=== PATIENT | male | born 1940 | race Caucasian/White ===

== ENCOUNTER 2019-12-07 11:43 | Outpatient (CLI) | payer MEDICARE, BC, SELFPAY ==
[2019-12-07 12:53] LABS: Anion Gap 14.1 mmol/L (7-16); Blood Urea Nitrogen 10 mg/dL (7-18); Calcium 9.3 mg/dL (8.5-10.1); Carbon Dioxide 26 mmol/L (21-32); Chloride 102 mmol/L (98-108); Estimated Glomerular Filt Rate > 60; Glucose 127 mg/dL (70-99); Osmolality Calculated 287 mOsm/kg (285-295); Potassium 4.1 mmol/L (3.5-5.1); Sodium 138 mmol/L (136-145)
== END 2019-12-07 11:44 | disposition home or self-care (01) ==
DX: I50.9 Heart failure, unspecified (principal)
CPT/HCPCS: 36415; 80048

== ENCOUNTER 2020-10-04 13:46 | Outpatient (CLI) | payer MEDICARE, SELFPAY ==
[2020-10-04 13:59] LABS: Basophils Absolute Auto 0.12 K/mm3 (0.00-0.10); Basophils Percent Auto 1.3 % (0.0-1.0); Eosinophils Absolute Auto 0.48 K/mm3 (0.02-0.50); Eosinophils Percent Auto 5.1 % (1.0-6.0); Hemoglobin 10.1 g/dL (12.4-15.3); Immature Granulocyte Absolute 0.03 K/mm3 (0.00-0.00); Immature Granulocyte Percent A 0.3 % (0.0-0.0); Lymphocytes Absolute Auto 2.28 K/mm3 (1.10-4.50); Lymphocytes Percent Auto 24.1 % (18.0-42.0); Mean Corpuscular HGB Conc 30.6 g/dL (32.0-36.0); Mean Corpuscular Hemoglobin 23.6 pg (27.0-31.0); Mean Corpuscular Volume 77.1 fL (78.0-102.0); Mean Platelet Volume 11.1 fl (8.7-11.0); Monocytes Absolute Auto 0.83 K/mm3 (0.10-0.90); Monocytes Percent Auto 8.8 % (2.0-11.0); Neutrophils Absolute Auto 5.7 K/mm3 (1.7-7.2); Neutrophils Percent Auto 60.4 % (50.0-70.0); Platelet Count Result 291 K/mm3 (150-420); Red Blood Count 4.28 M/mm3 (4.70-6.10); Red Cell Distribution Width 16.6 % (11.6-14.4); White Blood Count 9.5 K/mm3 (4.8-10.8)
[2020-10-04 15:24] LABS: Iron 19 ug/dL (65-175); Percent Iron Saturation 5 % (12-57)
== END 2020-10-04 13:47 | disposition home or self-care (01) ==
DX: D58.2 Other hemoglobinopathies (principal); D64.9 Anemia, unspecified
CPT/HCPCS: 36415; 83540; 83550; 85025

== ENCOUNTER 2020-10-17 11:18 | Outpatient (CLI) | payer MEDICARE, SELFPAY ==
[2020-10-17 12:25] LABS: Anion Gap 12 mmol/L (8-16); Blood Urea Nitrogen 19 mg/dL (7-18); Carbon Dioxide 27 mmol/L (21-32); Chloride 99 mmol/L (98-108); Estimated Glomerular Filt Rate 56; Glucose 126 mg/dL (70-99); Osmolality Calculated 290 mOsm/kg (285-295); Sodium 138 mmol/L (136-145)
== END 2020-10-17 11:19 | disposition home or self-care (01) ==
DX: I50.22 Chronic systolic (congestive) heart failure (principal)
CPT/HCPCS: 36415; 80048

== ENCOUNTER 2020-10-24 11:50 | Outpatient (CLI) | payer MEDICARE, SELFPAY ==
[2020-10-24 12:39] LABS: Anion Gap 12 mmol/L (8-16); Blood Urea Nitrogen 15 mg/dL (7-18); Calcium 8.5 mg/dL (8.5-10.1); Carbon Dioxide 25 mmol/L (21-32); Chloride 102 mmol/L (98-108); Estimated Glomerular Filt Rate > 60; Glucose 170 mg/dL (70-99); Osmolality Calculated 292 mOsm/kg (285-295); Potassium 4.2 mmol/L (3.5-5.1); Sodium 139 mmol/L (136-145)
== END 2020-10-24 11:51 | disposition home or self-care (01) ==
DX: I50.22 Chronic systolic (congestive) heart failure (principal)
CPT/HCPCS: 36415; 80048

== ENCOUNTER 2020-12-07 21:04 | Observation (INO) | payer MEDICARE, BC, SELFPAY ==
--- NOTE | ~2020-12-07 | XR_ITS ---
XR chest 2V DATE: 12/07/2020 22:39 INDICATION: Shortness of breath, generalized weakness TECHNIQUE: PA and lateral views COMPARISON: 07/30/2017 AP and lateral chest FINDINGS: Cardiac megaly. Aortic calcification and mild unfolding. monitoring manager device overlies th e left chest. Status post sternotomy. No pulmonary infiltrate or consolidation, pleural effusion or pulmonary vascular congestion or pneumo thorax is detected. Diffuse idiopathic skeletal hyperostosis of the thoracic spine. IMPRESSION: Cardiomegaly Aortic atherosclerosis No active pulmonary disease Reviewed, dictated and finalized at location A.
--- NOTE | ~2020-12-07 | XR_ITS ---
XR abdomen obstructive series DATE: 12/07/2020 22:39 INDICATION: Nausea and constipation TECHNIQUE: Supine and upright AP views COMPARISON: None FINDINGS: Degenerative spurring of the thoracic and lumbar spine. Multiple bilateral calcified pelvic phleboliths. Abdominal aortic, iliac and femoral artery calcifica tion. No evidence of bowel obstruction. No intraperitoneal free air is evident. No visceromegaly is detecte d. IMPRESSION: Nonspecific abdomen; no obstruction or free air is detected Reviewed, dictated and finalized at [facility]. Reviewed, dictated and finalized at location A.
[2020-12-07 21:15] VITALS: BP 130/97; PULSE 81; RESP 20; TEMP 36.4; O2SAT 97
--- NOTE | 2020-12-07 21:54 | ECG_ITS ---
Measurements Intervals Woody Rate: 69 P: PA: 0 QRS: 38 QRSD: 135 T: 152 QT: 438 QTc: 471 Interpretive Statements ATRIAL FIBRILLATION INTRAVENTRICULAR CONDUCTION DELAY DELAYED PRECORDIAL R/S TRANSITION BORDERLINE T WAVE ABNORMALITY- HIGH LATERAL LEADS ABNORMAL ECG Electronically Signed On 12-08-2020 7:20:38 CDT by Kash Murphy D.O.
[2020-12-07] MEDS: ONDANSETRON HCL ODT 4 MG TABLET PO (22:00)
[2020-12-07 22:12] LABS: Basophils Absolute Auto 0.11 K/mm3 (0.00-0.10); Basophils Percent Auto 0.9 % (0.0-1.0); Eosinophils Absolute Auto 0.28 K/mm3 (0.02-0.50); Eosinophils Percent Auto 2.4 % (1.0-6.0); Hematocrit 32.7 % (37.0-46.0); Hemoglobin 9.9 g/dL (12.4-15.3); Immature Granulocyte Absolute 0.03 K/mm3 (0.00-0.00); Immature Granulocyte Percent A 0.3 % (0.0-0.0); Lymphocytes Absolute Auto 3.43 K/mm3 (1.10-4.50); Lymphocytes Percent Auto 29.3 % (18.0-42.0); Mean Corpuscular HGB Conc 30.3 g/dL (32.0-36.0); Mean Corpuscular Hemoglobin 21.8 pg (27.0-31.0); Mean Platelet Volume 10.5 fl (8.7-11.0); Monocytes Absolute Auto 1.04 K/mm3 (0.10-0.90); Monocytes Percent Auto 8.9 % (2.0-11.0); Neutrophils Absolute Auto 6.8 K/mm3 (1.7-7.2); Neutrophils Percent Auto 58.2 % (50.0-70.0); Platelet Count Result 296 K/mm3 (150-420); Red Blood Count 4.54 M/mm3 (4.70-6.10); Red Cell Distribution Width 16.9 % (11.6-14.4); White Blood Count 11.7 K/mm3 (4.8-10.8)
--- NOTE | 2020-12-07 22:13 | ED.GENADULT ---
HPI - General Adult General Chief complaint: Dizziness Stated complaint: dizzy,nausea Time Seen by Provider: 12/07/20 21:25 Source: patient and family Mode of arrival: ambulatory Limitations: no limitations History of Present Illness HPI narrative: Patient comes in with complaints of diffuse pain, all over he says. He has been taking hydrocodone at home which he has from his primary doctor. He comes in because he has not been feeling well with diffuse discomfort. He denies fever, chills and other complaints or discomfort.. Onset (ago): day(s) Quality: aching Pain Consistency: intermittent Related Data Home Medications Medication Instructions Recorded Confirmed allopurinol 300 mg PO DAILY 12/07/20 12/07/20 amitriptyline 50 mg PO HS 12/07/20 12/07/20 apixaban [Eliquis] 5 mg PO BID 12/07/20 12/07/20 aspirin 81 mg PO DAILY 12/07/20 12/07/20 atorvastatin 20 mg PO DAILY 12/07/20 12/07/20 carvedilol 12.5 mg PO BID 12/07/20 12/07/20 furosemide 40 mg PO QAM AND QPM 12/07/20 12/07/20 hydrocodone-acetaminophen 1 tablet PO Q4-6H PRN 12/07/20 12/07/20 insulin glargine [Lantus Solostar 60 unit SUBCUT QAM AND QPM 12/07/20 12/07/20 U-100 Insulin] metolazone 2.5 mg PO 2XW 12/07/20 12/07/20 omeprazole 20 mg PO DAILY 12/07/20 12/07/20 sacubitril-valsartan [Entresto] 1 tablet PO BID 12/07/20 12/07/20 Allergies Allergy/AdvReac Type Severity Reaction Status Date / Time No Known Allergies Allergy Unverified 08/02/17 19:39 Review of Systems Constitutional: Constitutional: Reports no additional constitutional complaints Eyes: Eyes: Reports no additional eye complaints ENT: Reports system reviewed and no additional complaints, except as documented Cardiovascular: Cardiovascular: Reports no additional cardiovascular complaints Comments: no known tachycardia Respiratory: Respiratory: Reports no additional respiratory complaints Gastrointestinal: Gastrointestinal: Reports no additional gastrointestinal complaints Genitourinary: Genitourinary: Reports no additional male genitourinary complaints Musculoskeletal: Musculoskeletal: Reports no additional musculoskeletal complaints Integumentary/Breasts: Skin/Breast: Reports system reviewed and no additional complaints, except as docu Neurologic: Reports system reviewed and no additional complaints, except as documented Psychiatric: Psychiatric: Reports no additional psychiatric complaints Endocrine: Endocrine: Reports no additional endocrine complaints Hematologic/Lymphatic: Hematologic/Lymphatic: Reports no additional hematologic/lymphatic complaints Allergic/Immunologic: Allergic/Immunologic: Reports no additional allergic/immunologic complaints [facility] Past Medical History Medical History (Updated 12/08/20 @ 00:07 by Pollo Kinney MD) CAD (coronary artery disease) CHF (congestive heart failure) Diabetes mellitus GERD (gastroesophageal reflux disease) Gout Hyperlipidemia Hypertension Lower GI bleed Myocardial infarct Neuropathy Pacemaker Pacemaker Psoriasis Surgical History Surgical History (Updated 12/07/20 @ 23:47 by Pollo Kinney MD) Hx of CABG Previous back surgery Family History Family History (Updated 12/08/20 @ 00:13 by Pollo Kinney MD) Father Family history non-contributory Social History Social History (Updated 12/07/20 @ 23:52 by Pollo Kinney MD) Smoking status: Former smoker Alcohol intake: never Substance use: never Occupation/Education: retired Sexual Orientation (if Verbalized by the Patient): Straight or Heterosexual Exam Const: General: healthy appearing and no acute distress Orientation/consciousness: patient oriented x3 HENMT: Head: normal to inspection Ears: external ears normal Face and sinus: normal facial exam Mouth: Yes Normal oral and palatal mucosa present Eyes: Conjunctivae: conjunctivae normal Neck: Neck: normal visual inspection and no lymphadenopathy Chest: Chest palpation & inspection: normal i
[2020-12-07 22:28] LABS: BNP 131 pg/mL (0-100)
[2020-12-07 22:30] LABS: Alanine Aminotransferase 15 U/L (16-63); Albumin Level 3.6 g/dL (3.4-5.0); Alkaline Phosphatase 93 U/L (46-116); Anion Gap 11 mmol/L (8-16); Aspartate Amino Transferase 23 U/L (15-37); Bilirubin,Total 0.6 mg/dL (0.00-1.00); Blood Urea Nitrogen 24 mg/dL (7-18); Carbon Dioxide 28 mmol/L (21-32); Chloride 97 mmol/L (98-108); Estimated CRCL calculation 54 ml/min; Estimated Glomerular Filt Rate 49; Glucose 112 mg/dL (70-99); Lipase 136 U/L (73-393); Osmolality Calculated 287 mOsm/kg (285-295); Potassium 2.6 mmol/L (3.5-5.1); Sodium 136 mmol/L (136-145); Total Protein 7.6 g/dL (6.4-8.2); Troponin I 19.6 ng/L (0.00-60.4)
[2020-12-07] MEDS: POTASSIUM CHLORIDE 20 MEQ TABLET 50 MEQ PO (22:52)
--- NOTE | 2020-12-07 23:06 | PC.NURSE ---
ERP discussed POC c pt. and son, will admit for 23 hr. obs tele and reevaluate in AM.
--- NOTE | 2020-12-07 23:15 | PC.NURSE ---
Pt. took his own HS meds per permission of ERP.
[2020-12-07] MEDS: SODIUM CHLORIDE 0.9% IV 1,000 ML 150 ML IV CONT (23:28)
[2020-12-07 23:38] VITALS: BP 112/58; PULSE 79; RESP 18; TEMP 36.4; O2SAT 97
[2020-12-07 23:40] LABS: Phosphorus 3.2 mg/dL (2.6-4.7)
[2020-12-08] VITALS (7 sets, daily range): BP systolic 105–121; BP diastolic 50–62; PULSE 66–95; RESP 18–20; TEMP 36.2–36.9; O2SAT 96–98; BMI 39.9
--- NOTE | 2020-12-08 00:42 | PC.NURSE ---
Patient arrived on floor from ER at 2355 on 12/07/20. Patient denies any c/o pain. A/O x4. [employer]. Wears glasses and full dentures uppers and lowers. Patient denies any nausea. C/o SOB at times, not at this currently time. Vitals taken and charted. No skin issues noted. Telemetry ordered and placed.
--- NOTE | 2020-12-08 00:44 | PC.NURSE ---
Patient has personal belongings with patient in room, money and wallet, extrusion die corrector notified. Cell phone and devulcanizer charger.
[2020-12-08] MEDS: ZOLPIDEM TARTRATE (*CRX) 5 MG TABLET 10 MG PO (00:50)
--- NOTE | 2020-12-08 00:55 | PC.NURSE ---
Elavil and Coreg were not given as one time dose as patient took own medication already. wine fermenter notified.
[2020-12-08] MEDS: POTASSIUM CHLORIDE 10 MEQ TABLET 50 MEQ PO (05:07)
--- NOTE | 2020-12-08 05:45 | PC.NURSE ---
Pattern Storage Clerk collected UA and sent to lab for analysis. Awaiting results.
[2020-12-08 05:52] LABS: Add Urine Microscopic? NO; Appearance Urine Clear (Clear); Bilirubin Urine Negative (Negative); Blood Urine Negative (Negative); Color Urine Yellow (Yellow); Glucose Urine UA Negative (Negative); Ketones Urine Negative (Negative); Leukocyte Esterase Ur Negative (Negative); Nitrate Urine Negative (Negative); Protein Urine Negative (Negative); Urobilinogen Urine 0.2 mg/dL (0.2-1.0)
[2020-12-08] MEDS: SODIUM CHLORIDE 0.9% IV 1,000 ML 150 ML IV CONT (06:30)
[2020-12-08 08:03] LABS: Glucose Point of Care 71 (65-105)
[2020-12-08] MEDS: SACUBITRIL/VALSARTAN 24-26 MG TABLET 1 TAB PO (09:50)
[2020-12-08] MEDS: ATORVASTATIN 10 MG TABLET 20 MG PO (09:50)
[2020-12-08] MEDS: carvediloL 12.5 MG TABLET PO (09:50)
[2020-12-08] MEDS: ASPIRIN 81 MG ENTERIC TABLET PO (09:51)
[2020-12-08] MEDS: APIXABAN 2.5 MG TABLET 5 MG PO (09:51)
[2020-12-08] MEDS: allopurinoL 300 MG TABLET PO (09:51)
[2020-12-08] MEDS: PANTOPRAZOLE SOD SESQUIHYDRATE 20 MG TAB PO (09:51)
[2020-12-08] MEDS: POTASSIUM CHLORIDE 20 MEQ TABLET 40 MEQ PO (09:55)
[2020-12-08 10:16] LABS: Anion Gap 8 mmol/L (8-16); Blood Urea Nitrogen 22 mg/dL (7-18); Calcium 8.7 mg/dL (8.5-10.1); Carbon Dioxide 30 mmol/L (21-32); Chloride 100 mmol/L (98-108); Estimated CRCL calculation 60 ml/min; Estimated Glomerular Filt Rate 59; Glucose 148 mg/dL (70-99); Osmolality Calculated 292 mOsm/kg (285-295); Potassium 3.3 mmol/L (3.5-5.1); Sodium 138 mmol/L (136-145)
[2020-12-08] MEDS: ONDANSETRON INJ 4 MG/2 ML VIAL IV PUSH (10:49)
--- NOTE | 2020-12-08 10:49 | PM.SD2 ---
Same Day Admit/Disch: HPI History of Present Illness Chief complaint: hypokalemia afib Narrative: Kennedy Guerrero is a 80 year old male who presented to hospital staff with nausea and generalized muscle aches and dizziness on occasion. Pt has a PMHx of A fib (for witch he is seeing his manager distribution center for what sounds like cardioversion with possible pacemaker placement), DM, Gout, GERD, HTN, CHF, CAD, Hyperlipidemia. Lab work from 10/04/2020 indicates Iron Deficiency Anemia however Pt does not take Iron supplements. Pt denies CP, SOB, changes in bowel habits, changes in urinary habits. He admits that when he lays down he becomes SOB and has to sleep in a recliner. Pt may benefit from a Sleep Study in the future. [facility] Past Medical History Medical History (Updated 12/08/20 @ 14:38 by TANYA Lopez) CAD (coronary artery disease) CHF (congestive heart failure) Diabetes mellitus GERD (gastroesophageal reflux disease) Gout Hyperlipidemia Hypertension Lower GI bleed Myocardial infarct Neuropathy Psoriasis Surgical History Surgical History Hx of CABG Previous back surgery Family History Family History Father Family history non-contributory Social History Social History Smoking status: Former smoker Tobacco type: cigarettes Second hand tobacco smoke exposure: No Alcohol intake: former Substance use: never Substance use type: does not use Occupation/Education: retired Gender identity (if verbalized by the patient): Male Sexual Orientation (if Verbalized by the Patient): Straight or Heterosexual Spiritual care concerns: No Same Day Admit/Disch: Med Pre-admit Medications Home Medications Medication Instructions Recorded Confirmed Type allopurinol 300 mg PO DAILY 12/07/20 12/07/20 History amitriptyline 50 mg PO HS 12/07/20 12/07/20 History apixaban [Eliquis] 5 mg PO BID 12/07/20 12/07/20 History aspirin 81 mg PO DAILY 12/07/20 12/07/20 History atorvastatin 20 mg PO DAILY 12/07/20 12/07/20 History carvedilol 12.5 mg PO BID 12/07/20 12/07/20 History furosemide 40 mg PO QAM AND QPM 12/07/20 12/07/20 History hydrocodone-acetaminophen 1 tablet PO Q4-6H PRN 12/07/20 12/07/20 History insulin glargine [Lantus Solostar 60 unit SUBCUT QAM AND QPM 12/07/20 12/07/20 History U-100 Insulin] metolazone 2.5 mg PO 2XW 12/07/20 12/07/20 History omeprazole 20 mg PO DAILY 12/07/20 12/07/20 History sacubitril-valsartan [Entresto] 1 tablet PO BID 12/07/20 12/07/20 History zolpidem 10 mg PO HS PRN #30 tablet 12/08/20 Rx Exam Const: General: cooperative, comfortable, no acute distress, alert, awake and Physically active Nutritional Appearance: obese morbidly obese Resp: Effort & Inspection: normal respiratory effort Auscultation: clear to auscultation bilaterally Cardio: Rhythm: abnormal rhythm irregularly irregular GI: GI Palp: Yes Soft to palpation and No Tenderness to palpation present (GI) Auscultation: normal bowel sounds Neuro: General: oriented to person, oriented to place and oriented to time Cranial nerves: Yes CN's II-XII intact bilaterally (grossly intact) Extrem: General: edema bilateral (1+ pitting edema) DS: Data Data Completed and Pending Labs on day of discharge: Labs from last 24 hours 12/08/20 12/08/20 12/07/20 09:58 08:01 23:25 WBC RBC Hgb Hct MCV MCH MCHC RDW Plt Count MPV Immature Gran % (Auto) Neut % (Auto) Lymph % (Auto) Edwards % (Auto) Eos % (Auto) Baso % (Auto) Lymph # (Auto) Edwards # (Auto) Eos # (Auto) Baso # (Auto) Abs Immat Gran (auto) Absolute Neuts (auto) Absolute Nucleated RBC Nucleated RBC % Sodium 138 Potassium 3.3 L Chloride 100 Carbon Dioxide 30 Anion Gap 8 BUN 22 H Creatinine 1.19 E
--- NOTE | 2020-12-08 10:51 | PC.NURSE ---
4mg Zofran given IV per patient request for complaints of nausea.
[2020-12-08] MEDS: POTASSIUM CHLORIDE 20 MEQ PACKET (FOR LIQUID) 40 MEQ PO (11:22)
[2020-12-08 12:00] LABS: Glucose Point of Care 130 (65-105)
[2020-12-08] MEDS: BISACODYL 5 MG TABLET EC 10 MG PO (12:07)
--- NOTE | 2020-12-08 16:05 | PC.NURSE ---
All discharge instructions and education reviewed with patient. Patient states understanding. All belongings gathered together and sent home with patient. IV site discontinued, dressing in place. Patient denies any further questions at this time. Patient accompanied to front door via wheelchair by this nurse. Left via private vehicle with family member.
--- NOTE | 2020-12-19 11:38 | PC.NURSE ---
Patient's son states he received and understood all of his discharge instructions. Has no other comments.
== END 2020-12-08 16:05 | disposition home or self-care (01) ==
LOC: CHSED 21:09 → CHS2ND 23:51
PROVIDERS: Admitting Provider Emergency Medicine; Emergency Provider Emergency Medicine; Visit Provider Emergency Medicine
DX: E87.6 Hypokalemia (principal); I11.0 Hypertensive heart disease with heart failure; I48.11 Longstanding persistent atrial fibrillation; I50.9 Heart failure, unspecified; I25.2 Old myocardial infarction; I25.10 Atherosclerotic heart disease of native coronary artery without angina pectoris; E78.5 Hyperlipidemia, unspecified; E11.40 Type 2 diabetes mellitus with diabetic neuropathy, unspecified; K21.9 Gastro-esophageal reflux disease without esophagitis; M10.9 Gout, unspecified; R42 Dizziness and giddiness; Z95.0 Presence of cardiac pacemaker; Z95.1 Presence of aortocoronary bypass graft; Z87.891 Personal history of nicotine dependence; I48.91 Unspecified atrial fibrillation
CPT/HCPCS: 36415; 71046; 74019; 80048; 80053; 81003; 82948; 83690; 83735; 83880; 84100; 84484; 85025; 93005; 96361; 96374; 99285; A9270; G0378; J2405; J7030

== ENCOUNTER 2020-12-23 12:19 | Outpatient (CLI) | payer MEDICARE, SELFPAY ==
[2020-12-23 12:53] LABS: Basophils Absolute Auto 0.08 K/mm3 (0.00-0.10); Eosinophils Absolute Auto 0.17 K/mm3 (0.02-0.50); Hematocrit 26.6 % (37.0-46.0); Hemoglobin 7.8 g/dL (12.4-15.3); Immature Granulocyte Absolute 0.03 K/mm3 (0.00-0.00); Immature Granulocyte Percent A 0.4 % (0.0-0.0); Lymphocytes Absolute Auto 2.11 K/mm3 (1.10-4.50); Lymphocytes Percent Auto 25.1 % (18.0-42.0); Mean Corpuscular HGB Conc 29.3 g/dL (32.0-36.0); Mean Corpuscular Hemoglobin 21.4 pg (27.0-31.0); Mean Corpuscular Volume 73.1 fL (78.0-102.0); Mean Platelet Volume 9.4 fl (8.7-11.0); Monocytes Absolute Auto 0.59 K/mm3 (0.10-0.90); Neutrophils Absolute Auto 5.4 K/mm3 (1.7-7.2); Neutrophils Percent Auto 64.5 % (50.0-70.0); Platelet Count Result 322 K/mm3 (150-420); Red Blood Count 3.64 M/mm3 (4.70-6.10); Red Cell Distribution Width 18.4 % (11.6-14.4); White Blood Count 8.4 K/mm3 (4.8-10.8)
== END 2020-12-23 12:20 | disposition home or self-care (01) ==
DX: K62.5 Hemorrhage of anus and rectum (principal)
CPT/HCPCS: 36415; 85025

== ENCOUNTER 2021-01-30 12:18 | Outpatient (CLI) | payer MEDICARE, SELFPAY ==
[2021-01-30 12:35] LABS: Basophils Absolute Auto 0.09 K/mm3 (0.00-0.10); Basophils Percent Auto 0.9 % (0.0-1.0); Eosinophils Absolute Auto 0.23 K/mm3 (0.02-0.50); Eosinophils Percent Auto 2.4 % (1.0-6.0); Hematocrit 30.6 % (37.0-46.0); Hemoglobin 8.8 g/dL (12.4-15.3); Immature Granulocyte Absolute 0.05 K/mm3 (0.00-0.00); Immature Granulocyte Percent A 0.5 % (0.0-0.0); Lymphocytes Absolute Auto 2.05 K/mm3 (1.10-4.50); Mean Corpuscular HGB Conc 28.8 g/dL (32.0-36.0); Mean Corpuscular Volume 80.1 fL (78.0-102.0); Mean Platelet Volume 10.1 fl (8.7-11.0); Monocytes Absolute Auto 0.65 K/mm3 (0.10-0.90); Monocytes Percent Auto 6.7 % (2.0-11.0); Neutrophils Absolute Auto 6.7 K/mm3 (1.7-7.2); Neutrophils Percent Auto 68.5 % (50.0-70.0); Platelet Count Result 324 K/mm3 (150-420); Red Blood Count 3.82 M/mm3 (4.70-6.10); Red Cell Distribution Width 22.2 % (11.6-14.4); White Blood Count 9.8 K/mm3 (4.8-10.8)
== END 2021-01-30 12:19 | disposition home or self-care (01) ==
DX: D64.9 Anemia, unspecified (principal)
CPT/HCPCS: 36415; 85025

== ENCOUNTER 2021-02-23 13:19 | Outpatient (CLI) | payer MEDICARE, SELFPAY ==
[2021-02-23 13:51] LABS: Anion Gap 11 mmol/L (8-16); Blood Urea Nitrogen 12 mg/dL (7-18); Calcium 9.4 mg/dL (8.5-10.1); Carbon Dioxide 25 mmol/L (21-32); Chloride 104 mmol/L (98-108); Estimated Glomerular Filt Rate > 60; Glucose 126 mg/dL (70-99); Osmolality Calculated 291 mOsm/kg (285-295); Potassium 3.8 mmol/L (3.5-5.1); Sodium 140 mmol/L (136-145)
== END 2021-02-23 13:20 | disposition home or self-care (01) ==
DX: I50.22 Chronic systolic (congestive) heart failure (principal); Z95.1 Presence of aortocoronary bypass graft; I25.10 Atherosclerotic heart disease of native coronary artery without angina pectoris; I48.0 Paroxysmal atrial fibrillation; I36.1 Nonrheumatic tricuspid (valve) insufficiency; R06.9 Unspecified abnormalities of breathing
CPT/HCPCS: 36415; 80048

== ENCOUNTER 2021-03-17 12:23 | Outpatient (CLI) | payer MEDICARE, SELFPAY ==
[2021-03-17 12:45] LABS: Basophils Percent Auto 1.2 % (0.0-1.0); Eosinophils Absolute Auto 0.26 K/mm3 (0.02-0.50); Hematocrit 34.8 % (37.0-46.0); Hemoglobin 10.5 g/dL (12.4-15.3); Immature Granulocyte Absolute 0.03 K/mm3 (0.00-0.00); Immature Granulocyte Percent A 0.4 % (0.0-0.0); Lymphocytes Absolute Auto 2.34 K/mm3 (1.10-4.50); Lymphocytes Percent Auto 27.3 % (18.0-42.0); Mean Corpuscular HGB Conc 30.2 g/dL (32.0-36.0); Mean Corpuscular Hemoglobin 24.2 pg (27.0-31.0); Mean Corpuscular Volume 80.4 fL (78.0-102.0); Mean Platelet Volume 11.2 fl (8.7-11.0); Monocytes Absolute Auto 0.63 K/mm3 (0.10-0.90); Monocytes Percent Auto 7.4 % (2.0-11.0); Neutrophils Absolute Auto 5.2 K/mm3 (1.7-7.2); Neutrophils Percent Auto 60.7 % (50.0-70.0); Platelet Count Result 267 K/mm3 (150-420); Red Blood Count 4.33 M/mm3 (4.70-6.10); Red Cell Distribution Width 16.7 % (11.6-14.4); White Blood Count 8.6 K/mm3 (4.8-10.8)
== END 2021-03-17 12:24 | disposition home or self-care (01) ==
LOC: CHSLAB 12:34
DX: D64.9 Anemia, unspecified (principal)
CPT/HCPCS: 36415; 85025